=== PATIENT | male | born 1975 | race Caucasian/White ===

== ENCOUNTER 2024-01-29 11:05 | Emergency (ER) | payer OTHER ==
[2024-01-29] MEDS: HYDROmorphone 1 MG/ML Syringe IM ONE (12:02)
[2024-01-29] MEDS: Methocarbamol 500 MG Tab PO ONE (12:03)
== END 2024-01-29 13:45 | disposition home or self-care (01) ==
LOC: JP.ED 11:05
DX: S32.038A Other fracture of third lumbar vertebra, initial encounter for closed fracture (principal); Z79.82 Long term (current) use of aspirin; Z79.899 Other long term (current) drug therapy; X50.0XXA Overexertion from strenuous movement or load, initial encounter
CPT/HCPCS: 72072; 72100; 99283; A9270